=== PATIENT | female | born 1975 | race Caucasian/White ===

== ENCOUNTER 2017-06-11 06:14 | Emergency (ER) | payer SELFPAY ==
[~2017-06-11] VITALS: Ht 152.4 cm; Wt 60.0 kg
[2017-06-11 06:28] VITALS: BP 127/61
== END 2017-06-11 14:15 | disposition left against medical advice (07) ==
LOC: ER 06:14
DX: Z53.21 Procedure and treatment not carried out due to patient leaving prior to being seen by health care provider (principal)

== ENCOUNTER 2018-05-04 22:25 | Emergency (ER) | payer SELFPAY ==
[~2018-05-04] VITALS: Ht 160 cm; Wt 63.5 kg
[2018-05-05] MEDS ORDERED: IBUPROFEN 600MG TABLET PO ONE
[2018-05-05] MEDS ORDERED: HYDROCODONE/ACETAMINOPHEN 5/325MG TABLET PO ONE
[2018-05-05 05:01] VITALS: BP 118/85
== END 2018-05-05 05:03 | disposition home or self-care (01) ==
LOC: ER 22:25
DX: S16.1XXA Strain of muscle, fascia and tendon at neck level, initial encounter (principal); S40.012A Contusion of left shoulder, initial encounter; S00.83XA Contusion of other part of head, initial encounter; Y08.89XA Assault by other specified means, initial encounter; Y93.89 Activity, other specified; Y92.89 Other specified places as the place of occurrence of the external cause; Y99.8 Other external cause status
CPT/HCPCS: 70486; 73030; 81025; 99284